=== PATIENT | male | born 1950 | race Caucasian/White ===

== ENCOUNTER 2018-11-14 12:23 | Emergency (ER) | payer OTHER, SELFPAY ==
[2018-11-14 12:39] VITALS: BP 93/63; PULSE 49; RESP 16; O2SAT 95; BMI 34.8
--- NOTE | 2018-11-14 12:45 | ED.SYNCOPE ---
HPI - Syncope <JAQUELIN Mathis - Last Filed: 11/14/18 21:54> General Chief Complaint: Syncope Stated Complaint: LOW HEART RATE LOW BLOOD PRESSURE PASSING OUT SITE Time Seen by Provider: 11/14/18 12:29 Source: patient Mode of arrival: ambulatory Limitations: no limitations History of Present Illness HPI narrative: 67-year-old male with history of BPH and is a nonsmoker here for complaint of having a presyncopal episode at the walk-in clinic earlier today. He was there for a thumb laceration to his left thumb that he accidentally cut while he was cutting bread making breakfast this morning. They were irrigating his thumb and just give local anesthesia to the thumb when he started to feel lightheaded. Providers at the walk-in clinic noticed that his blood pressure dropped and his heart rate also dropped. Patient had some nausea. He did not lose consciousness. He denies any chest pain. No shortness of breath. He states he feels better at this time. He states that he has a history of having a vasovagal responses when he has had his blood drawn in the past. He denies any other concerns or complaints at this time. complaint: felt faint Related Data Home Medications Medication Instructions Recorded Confirmed tamsulosin 0.4 mg capsule 0.4 mg PO BID cap 11/14/18 11/14/18 Allergies Allergy/AdvReac Type Severity Reaction Status Date / Time No Known Drug Allergies Allergy Verified 11/14/18 12:39 Review of Systems <JAQUELIN Mathis - Last Filed: 11/14/18 21:54> Constitutional Denies chills, Denies fever(s), Denies lethargy and Denies weakness Eyes Denies change in vision, Denies eye discharge, Denies irritation and Denies loss of vision ENT Ears, Nose, Mouth, and Throat: Denies change in voice, Denies neck pain and Denies sore throat Cardiovascular Denies chest pain, Denies irregular heart rhythm, Denies lightheadedness, Denies palpitations, Denies dyspnea, Denies dyspnea on exertion and Denies orthopnea Comments: Pre syncopal episode Respiratory Denies cough, Denies dyspnea, Denies dyspnea on exertion and Denies wheezing Gastrointestinal Gastrointestinal: Denies abdominal pain, Denies change in bowel habits, Denies diarrhea, Denies nausea and Denies vomiting Genitourinary Denies hematuria, Denies flank pain, Denies urinary incontinence and Denies urinary urgency Musculoskeletal Denies neck pain Comments: Laceration of left thumb Integumentary/Breasts Denies pruritus, Denies erythema, Denies rash and Denies wounds Neurologic Denies confusion, Denies loss of vision and Denies weakness Psychiatric Denies anxiety, Denies confusion, Denies depression, Denies homicidal ideation and Denies suicidal ideation Endocrine Denies palpitations Hematologic/Lymphatic Denies easy bruising Allergic/Immunologic Denies wheezing Exam <JAQUELIN Mathis - Last Filed: 11/14/18 21:54> Initial Vital Signs Initial Vital Signs: Vital Signs Pulse Rate 49 L 11/14/18 12:39 Respiratory Rate 16 11/14/18 12:39 Blood Pressure 93/63 11/14/18 12:39 Pulse Oximetry 95 11/14/18 12:39 Const General: cooperative and well developed Nutritional Appearance: well nourished Orientation: alert, awake, oriented x3 and not confused HENMT Head: normal to inspection and normocephalic Mouth: oral mucosae normal and moist mucous membranes Eyes Conjunctivae: conjunctivae normal Sclera: sclerae normal Pupils: PERRL EOM: EOM intact bilaterally Chest Chest: normal inspection of the chest Resp Effort & Inspection: normal respiratory effort, able to speak in complete sentences, no respiratory distress and no use of accessory muscles Auscultation: clear to auscultation bilaterally, no rales, no rhonchi and no wheezes Cardio Rate: regular rate Rhythm: regular rhythm Heart Sounds: no click, no gallops, no murmurs and no rubs Pulses: normal peripheral pulses GI Inspection: non-distended Palpation: soft, no hepatosplenomegaly, No guarding, No pulsatile mass and No tender Auscultation: normal bowel sounds Skin General: no rashes or lesions noted, No jaundice and No petechiae Neuro General: alert, oriented x3, gait normal and no focal motor deficits Speech: speech normal Extrem Other: 3 cm laceration to the distal pad of the left thumb. Distal sensation is intact. Distal range of motion is intact. Distal cap refill less than 2 sec. <Addie Fraire DO - Last Filed: 11/15/18 21:34> Initial Vital Signs Initial Vital Signs: Vital Signs Pulse Rate 49 L 11/14/18 12:39 Respiratory Rate 16 11/14/18 12:39 Blood Pressure 93/63 11/14/18 12:39 Pulse Oximetry 95 11/14/18 12:39 Procedures <JAQUELIN Mathis - Last Filed: 11/14/18 21:54> Laceration Repair Laceration 1: Side (If applicable): left (Distal Pad left thumb) Size (cm): 3 Description: linear Depth: simple, single layer Local Anesthetic: lidocaine 1% Amount of anesthesia used (mL): 2 Pre-repair: wound explored and irrigated extensively Skin layer closed with: nylon Size (cm): 5-0 Number of sutures: 7 Technique: simple, interrupted Course <JAQUELIN Mathis - Last Filed: 11/14/18 21:54> Orders Ordered: Discontinued Medications Sodium Chloride (Normal Saline 0.9%) 1,000 mls @ 1,000 mls/hr IV BOLUS ONE Stop: 11/14/18 13:50 Last Infusion: 11/14/18 14:24 Dose: 0 mls/hr Admin: 11/14/18 13:15 Dose: 1,000 mls/hr Vital Signs - 8 hr 11/14/18 14:14 11/14/18 15:11 11/14/18 16:59 Pulse Rate 69 79 83 Respiratory Rate 16 23 16 Blood Pressure Blood Pressure [Left Arm] 118/82 126/63 134/81 Pulse Oximetry 98 96 11/14/18 17:06 Pulse Rate 83 Respiratory Rate 16 Blood Pressure 93/63 Blood Pressure [Left Arm] Pulse Oximetry 96 <Addie Fraire DO - Last Filed: 11/15/18 21:34> Orders Ordered: Discontinued Medications Sodium Chloride (Normal Saline 0.9%) 1,000 mls @ 1,000 mls/hr IV BOLUS ONE Stop: 11/14/18 13:50 Last Infusion: 11/14/18 14:24 Dose: 0 mls/hr Admin: 11/14/18 13:15 Dose: 1,000 mls/hr Vital Signs - 8 hr 11/14/18 14:14 11/14/18 15:11 11/14/18 16:59 Pulse Rate 69 79 83 Respiratory Rate 16 23 16 Blood Pressure Blood Pressure [Left Arm] 118/82 126/63 134/81 Pulse Oximetry 98 96 11/14/18 17:06 Pulse Rate 83 Respiratory Rate 16 Blood Pressure 93/63 Blood Pressure [Left Arm] Pulse Oximetry 96 MDM - Syncope <JAQUELIN Mathis - Last Filed: 11/14/18 21:54> Lab Data Result diagrams: 11/14/18 13:40 11/14/18 13:40 Lab Results 11/14/18 11/14/18 11/14/18 Range/Units 13:40 13:40 15:50 WBC 5.4 (4.5-11.0) X10^3/uL RBC 5.46 (4.5-5.9) X10^6/uL Hgb 16.9 (13.5-17.5) g/dL Hct 50.2 (41-53) % MCV 92.0 (80-100) fL MCH 31.0 (26-34) PG MCHC 33.7 (30-36) % RDW 13.3 (11.6-14.8) % Plt Count 159 (150-400) X10^3/uL Neut % (Auto) 71.6 (50-75) % Lymph % (Auto) 19.9 L (25-40) % Fillmore % (Auto) 6.9 (3-14) % Eos % (Auto) 1.1 L (2-4) % Baso % (Auto) 0.5 (0-2) % Neut # (Auto) 3900 (7945-9056) /uL Lymph # (Auto) 1100 (7511-6238) /uL Fill[place] # (Auto) 400 (0-900) /uL Eos # (Auto) 100 (0-450) /uL Baso # (Auto) 0 (0-100) /uL Sodium 142 (137-145) mmol/L Potassium 4.1 (3.4-5.1) mmol/L Chloride 105 (98-107) mmol/L Carbon Dioxide 27 (22-32) mmol/L BUN 15 (9-20) mg/dL Creatinine 0.70 (0.66-1.25) mg/dL Estimated GFR > 60.0 (>60) mL/min BUN/Creatinine Ratio 21.4 (6-22) Glucose 109 (80-110) mg/dL Calcium 9.3 (8.4-10.2) mg/dL Troponin I < 0.012 < 0.012 (0.01-0.034) ng/mL Imaging Data CT scan - head: Radiologist's impression: Launch Image View Report History Print [address] [address] [address] Scan Report Signed Patient: Stu Spencer MR#: [id number] : 1950 Acct:[id number] Age/Sex: 67 / M Date of Service: 11/14/18 Loc: ED Accession Number: [id number] Procedure: CT head/brain wo con Ordering Provider: Romulo Mayes PROCEDURE: CT HEAD/BRAIN WO CON INDICATIONS: Pre syncopal episode TECHNIQUE: Noncontrast 4.5 mm thick angled axial sections acquired from the foramen magnum to the vertex, with coronal and sagittal reformats. For radiation dose reduction, the following was used: automated exposure control, adjustment of mA and/or kV according to patient size. COMPARISON: None. FINDINGS: Image quality: Excellent. CSF spaces: Basal cisterns are patent. No extra-axial fluid collections. Ventricles are normal in size and shape. Brain: No midline shift. No intracranial masses or hemorrhage. Muniz-white matter interface is normal. Skull and face: Calvarium and visualized facial bones are intact, without suspicious lesions. Sinuses: Visualized sinuses and mastoids are clear. IMPRESSION: Normal for age, source of current presyncopal symptoms is not seen. Dictated by: Quinten Galeana M.D. on 11/14/2018 at 13:11 Approved by: Quinten Galeana M.D. on 11/14/2018 at 13:11 Chest x-ray: Radiologist's impression: [address] [address] XRay Report Signed Patient: Stu Spencer MR#: [id number] : 1950 Acct:[id number] Age/Sex: 67 / M Date of Service: 11/14/18 Loc: ED Accession Number: [id number] Procedure: XR chest 1V Ordering Provider: Romulo Mayes PROCEDURE: XR CHEST 1V INDICATIONS: Pre syncopal episode this morning TECHNIQUE: One view of the chest was acquired. COMPARISON: None. FINDINGS: Surgical changes and devices: None. Lungs and pleura: No pleural effusions or pneumothorax. Mild diffuse interstitial prominence and streaky opacities of the lung bases without focal consolidation. Lung volumes are slightly diminished. Mediastinum: Mediastinal contours appear normal. Heart size is normal. Bones and chest wall: No suspicious bony lesions. Overlying soft tissues appear unremarkable. IMPRESSION: Mild diffuse interstitial prominence and minimal bibasilar streaky opacities without focal consolidation. Findings are likely related to slightly diminished lung volumes. Otherwise, no acute cardiopulmonary abnormalities. Consider dedicated PA and lateral chest radiographs when patient is able. Dictated by: Chad Shay M.D. on 11/14/2018 at 14:01 Approved by: Chad Shay M.D. on 11/14/2018 at 14:03 ECG Data Interpretation: Initial EKG shows sinus bradycardia no ST elevation or depression. T-wave inversion seen to V3 and V6 V5 no ST elevation or depression. No ectopy. Ventricular rate of 49. Pr interval 228. QRS duration 106. QTC of 430 Repeat EKG shows normal sinus rhythm with no ST elevation or depression. No ectopy. T-waves return to normal. Ventricular rate is 71. Pr interval 238. QRS duration 97. QTC of 430. MDM Narrative Medical decision making narrative: Head CT was obtained was negative for any acute findings. Chest x-ray shows mild diffuse interstitial prominence and mild bibasilar opacities with no focal consolidation. Recommend repeat x-ray on outpatient basis with primary care provider. Patient felt much better after fluids laceration was closed with no complications. Two sets of cardiac enzymes were obtained and were negative. Laboratory results were unremarkable. Signs and symptoms presents as a vasovagal response however unsure of why he had inverted T-waves on initial EKG. Discussed case with Cardiology Dr. Nails who recommends outpatient stress test. Patient is instructed to follow up with primary care provider or cardiology for stress test referral. Tetanus was updated emergency room today. For any worsening symptoms return emergency room. Sutures removed in 7-10 days. [id number] Tylenol or Motrin as needed for any discomfort <Addie Fraire, - Last Filed: 11/15/18 21:34> Lab Data Lab Results 11/14/18 11/14/18 11/14/18 Range/Units 13:40 13:40 15:50 WBC 5.4 (4.5-11.0) X10^3/uL RBC 5.46 (4.5-5.9) X10^6/uL Hgb 16.9 (13.5-17.5) g/dL Hct 50.2 (41-53) % MCV 92.0 (80-100) fL MCH 31.0 (26-34) PG MCHC 33.7 (30-36) % RDW 13.3 (11.6-14.8) % Plt Count 159 (150-400) X10^3/uL Neut % (Auto) 71.6 (50-75) % Lymph % (Auto) 19.9 L (25-40) % Fillmore % (Auto) 6.9 (3-14) % Eos % (Auto) 1.1 L (2-4) % Baso % (Auto) 0.5 (0-2) % Neut # (Auto) 3900 (6111-4935) /uL Lymph # (Auto) 1100 (4600-8288) /uL Fill[place] # (Auto) 400 (0-900) /uL Eos # (Auto) 100 (0-450) /uL Baso # (Auto) 0 (0-100) /uL Sodium 142 (137-145) mmol/L Potassium 4.1 (3.4-5.1) mmol/L Chloride 105 (98-107) mmol/L Carbon Dioxide 27 (22-32) mmol/L BUN 15 (9-20) mg/dL Creatinine 0.70 (0.66-1.25) mg/dL Estimated GFR > 60.0 (>60) mL/min BUN/Creatinine Ratio 21.4 (6-22) Glucose 109 (80-110) mg/dL Calcium 9.3 (8.4-10.2) mg/dL Troponin I < 0.012 < 0.012 (0.01-0.034) ng/mL ECG Data Attestation: I personally reviewed and interpreted this ECG as follows: Prior ECG tracings: not available for review Interpretation: EKG 1.: Normal sinus rhythm T-wave inversions noted in lead 2 3 AVF V5 through V6 no ST elevations or depressions. Rate 49 EKG 2.: Normal sinus rhythm rate 71 no T-wave inversions or ST elevations noted on this EKG MDM Narrative Medical decision making narrative: I discussed case with Romulo. Cardiology was involved patient is not here for chest pain. He sound as though he had a vasovagal syncopal episode. No risk factors. Outpatient stress test was recommended. Discharge Plan Departure Patient Disposition: Home Clinical Impression: Vasovagal syncope, Laceration of left thumb Discharge Date/Time: 11/14/18 17:09 Interventions: ED Discharge Assessment Last Done: 11/14/18 17:08 Instructions: DI for Laceration Repair Activity Restrictions/Additional Instructions: Laceration left thumb was closed with 7 sutures. Sutures removed in 7-10 days. Tetanus was updated in the emergency room today. Keep wound area clean and dry. Dress wound daily with bacitracin dressing. Pre syncopal symptoms presents as a vasovagal response. However there were some EKG changes during initial EKG that needs to be further evaluated. It is recommended that you obtain a stress test/the echo for further evaluation. Follow up with her primary care provider for referral. For any worsening symptoms return to the emergency room. Plenty of fluids. Tetanus was updated in the emergency room today. Prescriptions: No Action tamsulosin 0.4 mg capsule 0.4 mg PO BID RF: 0 Referrals: [facility] [Provider Group] Nirav Nails MD [Physician] - <Addie Fraire DO - Last Filed: 11/15/18 21:34> Cosign ED Attending Alise Attestation: I was immediately available in the department for consultation. Documentation has been reviewed. I agree with assessment and plan.
--- NOTE | 2018-11-14 12:53 | DI.RAD.S_ITS ---
PROCEDURE: XR CHEST 1V INDICATIONS: Pre syncopal episode this morning TECHNIQUE: One view of the chest was acquired. COMPARISON: None. FINDINGS: Surgical changes and devices: None. Lungs and pleura: No pleural effusions or pneumothorax. Mild diffuse interstitial prominence and streaky opacities of the lung bases without focal consolidation. Lung volumes are slightly diminished. Mediastinum: Mediastinal contours appear normal. Heart size is normal. Bones and chest wall: No suspicious bony lesions. Overlying soft tissues appear unremarkable. IMPRESSION: Mild diffuse interstitial prominence and minimal bibasilar streaky opacities without focal consolidation. Findings are likely related to slightly diminished lung volumes. Otherwise, no acute cardiopulmonary abnormalities. Consider dedicated PA and lateral chest radiographs when patient is able. Dictated by: Chad Shay M.D. on 11/14/2018 at 14:01 Approved by: Chad Shay M.D. on 11/14/2018 at 14:03
--- NOTE | 2018-11-14 12:56 | DI.CT.S_ITS ---
PROCEDURE: CT HEAD/BRAIN WO CON INDICATIONS: Pre syncopal episode TECHNIQUE: Noncontrast 4.5 mm thick angled axial sections acquired from the foramen magnum to the vertex, with coronal and sagittal reformats. For radiation dose reduction, the following was used: automated exposure control, adjustment of mA and/or kV according to patient size. COMPARISON: None. FINDINGS: Image quality: Excellent. CSF spaces: Basal cisterns are patent. No extra-axial fluid collections. Ventricles are normal in size and shape. Brain: No midline shift. No intracranial masses or hemorrhage. Muniz-white matter interface is normal. Skull and face: Calvarium and visualized facial bones are intact, without suspicious lesions. Sinuses: Visualized sinuses and mastoids are clear. IMPRESSION: Normal for age, source of current presyncopal symptoms is not seen. Dictated by: Quinten Galeana M.D. on 11/14/2018 at 13:11 Approved by: Quinten Galeana M.D. on 11/14/2018 at 13:11
--- NOTE | 2018-11-14 13:03 | PC.NURSE ---
on arrival pt drank 120ml water. tolerated well, denies nausea
[2018-11-14] MEDS: SODIUM CHLORIDE 0.9% 1,000 ML 1000 ML IV (13:15)
[2018-11-14 13:30] VITALS: BP 98/59; PULSE 54; RESP 15; O2SAT 96
[2018-11-14 13:48] LABS: Add Manual Diff / Slide Review NO; Basophils Absolute Auto 0 /uL (0-100); Basophils Percent Auto 0.5 % (0-2); Eosinophils Absolute Auto 100 /uL (0-450); Eosinophils Percent Auto 1.1 % (2-4); Hematocrit 50.2 % (41-53); Hemoglobin 16.9 g/dL (13.5-17.5); Lymphocytes Absolute Auto 1100 /uL (1100-4500); Lymphocytes Percent Auto 19.9 % (25-40); Mean Corpuscular HGB Conc 33.7 % (30-36); Monocytes Absolute Auto 400 /uL (0-900); Monocytes Percent Auto 6.9 % (3-14); Neutrophils Absolute Auto 3900 /uL (1500-7000); Neutrophils Percent Auto 71.6 % (50-75); Platelet Count 159 X10^3/uL (150-400); Red Blood Cell Count 5.46 X10^6/uL (4.5-5.9); Red Cell Distribution Width 13.3 % (11.6-14.8); White Blood Cell Count 5.4 X10^3/uL (4.5-11.0)
--- NOTE | 2018-11-14 14:00 | ED_ITS ---
HPI - Syncope <JAQUELIN Mathis - Last Filed: 11/14/18 21:54> General Chief Complaint: Syncope Stated Complaint: LOW HEART RATE LOW BLOOD PRESSURE PASSING OUT SITE Time Seen by Provider: 11/14/18 12:29 Source: patient Mode of arrival: ambulatory Limitations: no limitations History of Present Illness HPI narrative: 67-year-old male with history of BPH and is a nonsmoker here for complaint of having a presyncopal episode at the walk-in clinic earlier today. He was there for a thumb laceration to his left thumb that he accidentally cut while he was cutting bread making breakfast this morning. They were irrigating his thumb and just give local anesthesia to the thumb when he started to feel lightheaded. Providers at the walk-in clinic noticed that his blood pressure dropped and his heart rate also dropped. Patient had some nausea. He did not lose consciousness. He denies any chest pain. No shortness of breath. He states he feels better at this time. He states that he has a history of having a vasovagal responses when he has had his blood drawn in the past. He denies any other concerns or complaints at this time. complaint: felt faint Related Data Home Medications Medication Instructions Recorded Confirmed tamsulosin 0.4 mg capsule 0.4 mg PO BID cap 11/14/18 11/14/18 Allergies Allergy/AdvReac Type Severity Reaction Status Date / Time No Known Drug Allergies Allergy Verified 11/14/18 12:39 Review of Systems <JAQUELIN Mathis - Last Filed: 11/14/18 21:54> Constitutional Denies chills, Denies fever(s), Denies lethargy and Denies weakness Eyes Denies change in vision, Denies eye discharge, Denies irritation and Denies loss of vision ENT Ears, Nose, Mouth, and Throat: Denies change in voice, Denies neck pain and Denies sore throat Cardiovascular Denies chest pain, Denies irregular heart rhythm, Denies lightheadedness, Denies palpitations, Denies dyspnea, Denies dyspnea on exertion and Denies orthopnea Comments: Pre syncopal episode Respiratory Denies cough, Denies dyspnea, Denies dyspnea on exertion and Denies wheezing Gastrointestinal Gastrointestinal: Denies abdominal pain, Denies change in bowel habits, Denies diarrhea, Denies nausea and Denies vomiting Genitourinary Denies hematuria, Denies flank pain, Denies urinary incontinence and Denies urinary urgency Musculoskeletal Denies neck pain Comments: Laceration of left thumb Integumentary/Breasts Denies pruritus, Denies erythema, Denies rash and Denies wounds Neurologic Denies confusion, Denies loss of vision and Denies weakness Psychiatric Denies anxiety, Denies confusion, Denies depression, Denies homicidal ideation and Denies suicidal ideation Endocrine Denies palpitations Hematologic/Lymphatic Denies easy bruising Allergic/Immunologic Denies wheezing Exam <JAQUELIN Mathis - Last Filed: 11/14/18 21:54> Initial Vital Signs Initial Vital Signs: Vital Signs Pulse Rate 49 L 11/14/18 12:39 Respiratory Rate 16 11/14/18 12:39 Blood Pressure 93/63 11/14/18 12:39 Pulse Oximetry 95 11/14/18 12:39 Const General: cooperative and well developed Nutritional Appearance: well nourished Orientation: alert, awake, oriented x3 and not confused HENMT Head: normal to inspection and normocephalic Mouth: oral mucosae normal and moist mucous membranes Eyes Conjunctivae: conjunctivae normal Sclera: sclerae normal Pupils: PERRL EOM: EOM intact bilaterally Chest Chest: normal inspection of the chest Resp Effort & Inspection: normal respiratory effort, able to speak in complete sentences, no respiratory distress and no use of accessory muscles Auscultation: clear to auscultation bilaterally, no rales, no rhonchi and no wheezes Cardio Rate: regular rate Rhythm: regular rhythm Heart Sounds: no click, no gallops, no murmurs and no rubs Pulses: normal peripheral pulses GI Inspection: non-distended Palpation: soft, no hepatosplenomegaly, No guarding, No pulsatile mass and No tender Auscultation: normal bowel sounds Skin General: no rashes or lesions noted, No jaundice and No petechiae Neuro General: alert, oriented x3, gait normal and no focal motor deficits Speech: speech normal Extrem Other: 3 cm laceration to the distal pad of the left thumb. Distal sensation is intact. Distal range of motion is intact. Distal cap refill less than 2 sec. <Addie Fraire DO - Last Filed: 11/15/18 21:34> Initial Vital Signs Initial Vital Signs: Vital Signs Pulse Rate 49 L 11/14/18 12:39 Respiratory Rate 16 11/14/18 12:39 Blood Pressure 93/63 11/14/18 12:39 Pulse Oximetry 95 11/14/18 12:39 Procedures <JAQUELIN Mathis - Last Filed: 11/14/18 21:54> Laceration Repair Laceration 1: Side (If applicable): left (Distal Pad left thumb) Size (cm): 3 Description: linear Depth: simple, single layer Local Anesthetic: lidocaine 1% Amount of anesthesia used (mL): 2 Pre-repair: wound explored and irrigated extensively Skin layer closed with: nylon Size (cm): 5-0 Number of sutures: 7 Technique: simple, interrupted Course <JAQUELIN Mathis - Last Filed: 11/14/18 21:54> Orders Ordered: Discontinued Medications Sodium Chloride (Normal Saline 0.9%) 1,000 mls @ 1,000 mls/hr IV BOLUS ONE Stop: 11/14/18 13:50 Last Infusion: 11/14/18 14:24 Dose: 0 mls/hr Admin: 11/14/18 13:15 Dose: 1,000 mls/hr Vital Signs - 8 hr 11/14/18 14:14 11/14/18 15:11 11/14/18 16:59 Pulse Rate 69 79 83 Respiratory Rate 16 23 16 Blood Pressure Blood Pressure [Left Arm] 118/82 126/63 134/81 Pulse Oximetry 98 96 11/14/18 17:06 Pulse Rate 83 Respiratory Rate 16 Blood Pressure 93/63 Blood Pressure [Left Arm] Pulse Oximetry 96 <Addie Fraire DO - Last Filed: 11/15/18 21:34> Orders Ordered: Discontinued Medications Sodium Chloride (Normal Saline 0.9%) 1,000 mls @ 1,000 mls/hr IV BOLUS ONE Stop: 11/14/18 13:50 Last Infusion: 11/14/18 14:24 Dose: 0 mls/hr Admin: 11/14/18 13:15 Dose: 1,000 mls/hr Vital Signs - 8 hr 11/14/18 14:14 11/14/18 15:11 11/14/18 16:59 Pulse Rate 69 79 83 Respiratory Rate 16 23 16 Blood Pressure Blood Pressure [Left Arm] 118/82 126/63 134/81 Pulse Oximetry 98 96 11/14/18 17:06 Pulse Rate 83 Respiratory Rate 16 Blood Pressure 93/63 Blood Pressure [Left Arm] Pulse Oximetry 96 MDM - Syncope <JAQUELIN Mathis - Last Filed: 11/14/18 21:54> Lab Data Result diagrams: 11/14/18 13:40 11/14/18 13:40 Lab Results 11/14/18 11/14/18 11/14/18 Range/Units 13:40 13:40 15:50 WBC 5.4 (4.5-11.0) X10^3/uL RBC 5.46 (4.5-5.9) X10^6/uL Hgb 16.9 (13.5-17.5) g/dL Hct 50.2 (41-53) % MCV 92.0 (80-100) fL MCH 31.0 (26-34) PG MCHC 33.7 (30-36) % RDW 13.3 (11.6-14.8) % Plt Count 159 (150-400) X10^3/uL Neut % (Auto) 71.6 (50-75) % Lymph % (Auto) 19.9 L (25-40) % [place] % (Auto) 6.9 (3-14) % Eos % (Auto) 1.1 L (2-4) % Baso % (Auto) 0.5 (0-2) % Neut # (Auto) 3900 (9614-2859) /uL Lymph # (Auto) 1100 (4402-3091) /uL [place] # (Auto) 400 (0-900) /uL Eos # (Auto) 100 (0-450) /uL Baso # (Auto) 0 (0-100) /uL Sodium 142 (137-145) mmol/L Potassium 4.1 (3.4-5.1) mmol/L Chloride 105 (98-107) mmol/L Carbon Dioxide 27 (22-32) mmol/L BUN 15 (9-20) mg/dL Creatinine 0.70 (0.66-1.25) mg/dL Estimated GFR > 60.0 (>60) mL/min BUN/Creatinine Ratio 21.4 (6-22) Glucose 109 (80-110) mg/dL Calcium 9.3 (8.4-10.2) mg/dL Troponin I < 0.012 < 0.012 (0.01-0.034) ng/mL Imaging Data CT scan - head: Radiologist's impression: Launch Image View Report History Print [address] [address] [address] Scan Report Signed Patient: Stu Spencer MR#: [id number] : 1950 Acct:[id number] Age/Sex: 67 / M Date of Service: 11/14/18 Loc: ED Accession Number: [id number] Procedure: CT head/brain wo con Ordering Provider: Romulo Mayes PROCEDURE: CT HEAD/BRAIN WO CON INDICATIONS: Pre syncopal episode TECHNIQUE: Noncontrast 4.5 mm thick angled axial sections acquired from the foramen magnum to the vertex, with coronal and sagittal reformats. For radiation dose reduction, the following was used: automated exposure control, adjustment of mA and/or kV according to patient size. COMPARISON: None. FINDINGS: Image quality: Excellent. CSF spaces: Basal cisterns are patent. No extra-axial fluid collections. Ventricles are normal in size and shape. Brain: No midline shift. No intracranial masses or hemorrhage. Muniz-white matter interface is normal. Skull and face: Calvarium and visualized facial bones are intact, without suspicious lesions. Sinuses: Visualized sinuses and mastoids are clear. IMPRESSION: Normal for age, source of current presyncopal symptoms is not seen. Dictated by: Quinten Galeana M.D. on 11/14/2018 at 13:11 Approved by: Quinten Galeana M.D. on 11/14/2018 at 13:11 Chest x-ray: Radiologist's impression: [address] [address] XRay Report Signed Patient: Stu Spencer MR#: [id number] : 1950 Acct:[id number] Age/Sex: 67 / M Date of Service: 11/14/18 Loc: ED Accession Number: [id number] Procedure: XR chest 1V Ordering Provider: Romulo Mayes PROCEDURE: XR CHEST 1V INDICATIONS: Pre syncopal episode this morning TECHNIQUE: One view of the chest was acquired. COMPARISON: None. FINDINGS: Surgical changes and devices: None. Lungs and pleura: No pleural effusions or pneumothorax. Mild diffuse interstitial prominence and streaky opacities of the lung bases without focal consolidation. Lung volumes are slightly diminished. Mediastinum: Mediastinal contours appear normal. Heart size is normal. Bones and chest wall: No suspicious bony lesions. Overlying soft tissues appear unremarkable. IMPRESSION: Mild diffuse interstitial prominence and minimal bibasilar streaky opacities without focal consolidation. Findings are likely related to slightly diminished lung volumes. Otherwise, no acute cardiopulmonary abnormalities. Consider dedicated PA and lateral chest radiographs when patient is able. Dictated by: Chad Shay M.D. on 11/14/2018 at 14:01 Approved by: Chad Shay M.D. on 11/14/2018 at 14:03 ECG Data Interpretation: Initial EKG shows sinus bradycardia no ST elevation or depression. T-wave inversion seen to V3 and V6 V5 no ST elevation or depression. No ectopy. Ventricular rate of 49. Pr interval 228. QRS duration 106. QTC of 430 Repeat EKG shows normal sinus rhythm with no ST elevation or depression. No ectopy. T-waves return to normal. Ventricular rate is 71. Pr interval 238. QRS duration 97. QTC of 430. MDM Narrative Medical decision making narrative: Head CT was obtained was negative for any acute findings. Chest x-ray shows mild diffuse interstitial prominence and mild bibasilar opacities with no focal consolidation. Recommend repeat x-ray on outpatient basis with primary care provider. Patient felt much better after fluids laceration was closed with no complications. Two sets of cardiac enzymes were obtained and were negative. Laboratory results were unremarkable. Signs and symptoms presents as a vasovagal response however unsure of why he had inverted T-waves on initial EKG. Discussed case with Cardiology Dr. Nails who recommends outpatient stress test. Patient is instructed to follow up with primary care provider or cardiology for stress test referral. Tetanus was updated emergency room today. For any worsening symptoms return emergency room. Sutures removed in 7-10 days. [id number] Tylenol or Motrin as needed for any discomfort <Addie Fraire, - Last Filed: 11/15/18 21:34> Lab Data Lab Results 11/14/18 11/14/18 11/14/18 Range/Units 13:40 13:40 15:50 WBC 5.4 (4.5-11.0) X10^3/uL RBC 5.46 (4.5-5.9) X10^6/uL Hgb 16.9 (13.5-17.5) g/dL Hct 50.2 (41-53) % MCV 92.0 (80-100) fL MCH 31.0 (26-34) PG MCHC 33.7 (30-36) % RDW 13.3 (11.6-14.8) % Plt Count 159 (150-400) X10^3/uL Neut % (Auto) 71.6 (50-75) % Lymph % (Auto) 19.9 L (25-40) % [place] % (Auto) 6.9 (3-14) % Eos % (Auto) 1.1 L (2-4) % Baso % (Auto) 0.5 (0-2) % Neut # (Auto) 3900 (2034-4090) /uL Lymph # (Auto) 1100 (6118-8937) /uL [place] # (Auto) 400 (0-900) /uL Eos # (Auto) 100 (0-450) /uL Baso # (Auto) 0 (0-100) /uL Sodium 142 (137-145) mmol/L Potassium 4.1 (3.4-5.1) mmol/L Chloride 105 (98-107) mmol/L Carbon Dioxide 27 (22-32) mmol/L BUN 15 (9-20) mg/dL Creatinine 0.70 (0.66-1.25) mg/dL Estimated GFR > 60.0 (>60) mL/min BUN/Creatinine Ratio 21.4 (6-22) Glucose 109 (80-110) mg/dL Calcium 9.3 (8.4-10.2) mg/dL Troponin I < 0.012 < 0.012 (0.01-0.034) ng/mL ECG Data Attestation: I personally reviewed and interpreted this ECG as follows: Prior ECG tracings: not available for review Interpretation: EKG 1.: Normal sinus rhythm T-wave inversions noted in lead 2 3 AVF V5 through V6 no ST elevations or depressions. Rate 49 EKG 2.: Normal sinus rhythm rate 71 no T-wave inversions or ST elevations noted on this EKG MDM Narrative Medical decision making narrative: I discussed case with Romulo. Cardiology was involved patient is not here for chest pain. He sound as though he had a vasovagal syncopal episode. No risk factors. Outpatient stress test was recommended. Discharge Plan Departure Patient Disposition: Home Clinical Impression: Vasovagal syncope, Laceration of left thumb Discharge Date/Time: 11/14/18 17:09 Interventions: ED Discharge Assessment Last Done: 11/14/18 17:08 Instructions: DI for Laceration Repair Activity Restrictions/Additional Instructions: Laceration left thumb was closed with 7 sutures. Sutures removed in 7-10 days. Tetanus was updated in the emergency room today. Keep wound area clean and dry. Dress wound daily with bacitracin dressing. Pre syncopal symptoms presents as a vasovagal response. However there were some EKG changes during initial EKG that needs to be further evaluated. It is recommended that you obtain a stress test/the echo for further evaluation. Follow up with her primary care provider for referral. For any worsening symptoms return to the emergency room. Plenty of fluids. Tetanus was updated in the emergency room today. Prescriptions: No Action tamsulosin 0.4 mg capsule 0.4 mg PO BID RF: 0 Referrals: [facility] [Provider Group] Nirav Nails MD [Physician] - <Addie Fraire DO - Last Filed: 11/15/18 21:34> Cosign ED Attending Alise Attestation: I was immediately available in the department for consultation. Documentation has been reviewed. I agree with assessment and plan.
[2018-11-14 14:02] LABS: BUN Creatinine Ratio 21.4 (6-22); Blood Urea Nitrogen 15 mg/dL (9-20); Calcium 9.3 mg/dL (8.4-10.2); Carbon Dioxide 27 mmol/L (22-32); Chloride 105 mmol/L (98-107); Estimated Glomerular Filt Rate > 60.0 mL/min (>60); Glucose 109 mg/dL (80-110); Potassium 4.1 mmol/L (3.4-5.1); Sodium 142 mmol/L (137-145)
[2018-11-14 14:14] VITALS: BP 118/82; PULSE 69; RESP 16; O2SAT 98
[2018-11-14 14:15] LABS: HEMOLYSIS < 15 (0-50)
[2018-11-14 14:22] LABS: Troponin I < 0.012 ng/mL (0.01-0.034)
[2018-11-14 15:11] VITALS: BP 126/63; PULSE 79; RESP 23
[2018-11-14 16:38] LABS: Troponin I < 0.012 ng/mL (0.01-0.034)
[2018-11-14 16:59] VITALS: BP 134/81; PULSE 83; RESP 16; O2SAT 96
[2018-11-14 17:06] VITALS: BP 93/63; PULSE 83; RESP 16; O2SAT 96; BMI 34.8
== END 2018-11-14 17:09 | disposition home or self-care (01) ==
PROVIDERS: Emergency Provider Nurse Practitioner Family
DX: S61.012A Laceration without foreign body of left thumb without damage to nail, initial encounter (principal); R55 Syncope and collapse; W26.8XXA Contact with other sharp object(s), not elsewhere classified, initial encounter
CPT/HCPCS: 12002; 36415; 70450; 71045; 80048; 84484; 85025; 93005; 93010; 96360; 99283; 99285

== ENCOUNTER 2019-11-11 01:27 | Emergency (ER) | payer OTHER, SELFPAY ==
--- NOTE | 2019-11-11 01:38 | ED.ABDPAIN ---
HPI - Abdominal Pain General Chief Complaint: Abdominal Pain Stated Complaint: TERRIBLE STOMACH ACHE Time Seen by Provider: 11/11/19 01:28 Source: patient Mode of arrival: Ambulatory Limitations: no limitations History of Present Illness HPI narrative: 68-year-old male here for evaluation of upper abdominal pain radiating to his back. He states that has been going on for the past several hours. Some nausea but no vomiting. He stated that he felt like he was constipated so gave himself an enema and had a bowel movement however this did not seem to changes symptoms. No other sick contacts. Related Data Home Medications Medication Instructions Recorded Confirmed tamsulosin 0.4 mg capsule 0.4 mg PO BID cap 11/14/18 11/14/18 Allergies Allergy/AdvReac Type Severity Reaction Status Date / Time No Known Drug Allergies Allergy Verified 11/14/18 12:39 Review of Systems Constitutional Constitutional: Denies fever(s) Cardiovascular Cardiovascular: Denies chest pain and Denies dyspnea Respiratory Respiratory: Denies dyspnea Gastrointestinal Gastrointestinal: Reports abdominal pain, Reports constipation, Reports nausea and Denies vomiting Genitourinary Genitourinary: Denies dysuria Musculoskeletal Musculoskeletal: Reports back pain, Denies myalgias and Denies arthralgias Integumentary/Breasts Skin/Breast: Denies lesions and Denies rash Neurologic Neurologic: Denies behavioral changes Psychiatric Psychiatric: Denies behavioral changes Hematologic/Lymphatic Hematologic/Lymphatic: Denies easy bleeding and Denies easy bruising Patient History Medical History BPH (benign prostatic hyperplasia) (Acute) Social History Smoking Status: Never smoker Exam Initial Vital Signs Initial Vital Signs: Vital Signs Temperature 97.4 F L 11/11/19 01:42 Pulse Rate 59 L 11/11/19 01:42 Respiratory Rate 16 11/11/19 01:42 Blood Pressure 157/93 H 11/11/19 01:42 Pulse Oximetry 95 11/11/19 01:42 Const General: cooperative, comfortable and well developed Limitations: mental status not altered HENMT Head: normal to inspection and normocephalic Resp Effort & Inspection: normal respiratory effort Cardio Rate: regular rate GI Inspection: non-distended Palpation: soft, No firm and tender (Bilateral upper abdomen without rebound or guarding) Skin Lesions: no lesions Rashes: no rashes Neuro General: alert and awake Cognition: normal cognition Speech: speech normal Extrem General: normal to inspection and capillary refill normal Course Orders Ordered: ED Orders 11/11/19 01:46 CT abdomen pelvis w con Stat 11/11/19 02:00 Complete Blood Count AUTO DIFF Stat Comprehensive Metabolic Panel Stat Lipase Stat Discontinued Medications Sodium Chloride (Normal Saline 0.9%) 1,000 mls @ 1,000 mls/hr IV BOLUS ONE Stop: 11/11/19 02:45 Last Admin: 11/11/19 02:09 Dose: 1,000 mls/hr Documented by: CADENCE Vital Signs Vital signs: Vital Signs - 8 hr 11/11/19 01:42 11/11/19 02:03 11/11/19 03:04 Temperature 97.4 F L Pulse Rate 59 L 59 L 81 Respiratory Rate 16 14 Blood Pressure 157/93 H Blood Pressure [Left Arm] 153/76 H 138/82 Pulse Oximetry 95 95 94 MDM - Abdominal Pain Medical Records Attestation: I reviewed the patient's medical records. Lab Data Attestation: I reviewed the patient's lab results. Result diagrams: 11/11/19 02:00 11/11/19 02:00 Labs: Lab Results 11/11/19 11/11/19 Range/Units 02:00 02:00 WBC 9.9 (4.5-11.0) X10^3/uL RBC 5.60 (4.5-5.9) X10^6/uL Hgb 17.5 (13.5-17.5) g/dL Hct 50.6 (41-53) % MCV 90.2 (80-100) fL MCH 31.3 (26-34) PG MCHC 34.7 (30-36) % RDW 13.5 (11.6-14.8) % Plt Count 171 (150-400) X10^3/uL Neut % (Auto) 86.7 H (50-75) % Lymph % (Auto) 10.1 L (25-40) % [place] % (Auto) 2.7 L (3-14) % Eos % (Auto) 0.4 L (2-4) % Baso % (Auto) 0.1 (0-2) % Neut # (Auto) 8600 H (3310-4145) /uL Lymph # (Auto) 1000 L (7319-0274) /uL [place] # (Auto) 300 (0-900) /uL Eos # (Auto) 0 (0-450) /uL Baso # (Auto) 0 (0-100) /uL Sodium 141 (137-145) mmol/L Potassium 3.6 (3.4-5.1) mmol/L Chloride 103 (98-107) mmol/L Carbon Dioxide 26 (22-32) mmol/L BUN 15 (9-20) mg/dL Creatinine 0.50 L (0.66-1.25) mg/dL Estimated GFR > 60.0 (>60) mL/min BUN/Creatinine Ratio 30.0 H (6-22) Glucose 166 H (80-110) mg/dL Calcium 9.9 (8.4-10.2) mg/dL Total Bilirubin 0.6 (0.2-1.3) mg/dL AST 42 (17-59) IU/L ALT 36 (<50) IU/L Alkaline Phosphatase 81 (38-126) U/L Total Protein 7.7 (6.3-8.2) g/dL Albumin 4.6 (3.5-5.0) g/dL Globulin 3.1 (1.7-4.1) g/dL Albumin/Globulin Ratio 1.5 (1.0-2.8) Lipase 94 (23-300) U/L Point of care testing: Urine Dip Bedside Urine Glucose Negative Bedside Urine Bilirubin - Negative Bedside Urine Ketone - Negative Urine Specific [place] 1.015 Bedside Urine Occult Blood - Negative Bedside Urine pH 7.0 Bedside Urine Protein - Negative Bedside Urine Urobilinogen - Negative Bedside Urine Nitrite - Negative Bedside Urine Leukocytes - Negative Esterase Imaging Data CT scan - abdomen/pelvis: Radiologist's Impression: Tiny stones in distended gallbladder Enlarged prostate Probable focal cecal ileus with fecal retention ECG Data Attestation: I personally reviewed and interpreted this ECG as follows: Prior ECG tracings: not available for review Interpretation: Sinus rhythm Ventricular rate is 60 Left axis deviation Sinus arrhythmia Nonspecific ST T wave changes MDM Narrative Medical decision making narrative: Patient with a very benign abdominal exam. Has ambulated urinated without any problems here in the ER. No fevers. CT scan does show colonic stool. Had a long discussion with the patient regarding his bowel habits. Does appear that he frequently has to use an enema to help him have bowel movements. This is not new for him. We did discuss the use of other modalities such as fiber versus oral laxatives. He has had a colonoscopy about 6 years ago. He was told that he did not need to return for 10 years. Feel we can hold on further workup for now. Feel that he does not need admitted to the hospital. He was given return precautions and follow-up instructions. He expressed understanding and agreement with plan. Discharge Plan Departure Patient Disposition: Home Clinical Impression: Abdominal pain Qualifiers: Abdominal location: upper abdomen, unspecified Qualified Code(s): R10.10 - Upper abdominal pain, unspecified Constipation Qualifiers: Constipation type: unspecified constipation type Qualified Code(s): K59.00 - Constipation, unspecified Instructions: DI for Abdominal Pain-Adult, DI for Constipation Activity Restrictions/Additional Instructions: Recommend you talk with your primary doctor about with they recommend with regard to a good bowel regiment. Should increase your fluid intake. Return to the emergency department for any new or worsening symptoms Prescriptions: No Action tamsulosin 0.4 mg capsule 0.4 mg PO BID RF: 0
[2019-11-11 01:42] VITALS: BP 157/93; PULSE 59; RESP 16; TEMP 36.3; O2SAT 95; BMI 32.8
--- NOTE | 2019-11-11 01:46 | DI.CT.S_ITS ---
PROCEDURE: CT ABDOMEN PELVIS W CON INDICATIONS: Upper abdomen pain with constipation and back pain TECHNIQUE: After the administration of oral and intravenous contrast, 5 mm thick sections acquired from the diaphragms to the symphysis. 5 mm thick coronal and sagittal reformats were performed. For radiation dose reduction, the following was used: automated exposure control, adjustment of mA and/or kV according to patient size. COMPARISON: None. FINDINGS: Image quality: Diagnostic ABDOMEN: Lung bases: Lung bases are clear. Mild elevation of the left diaphragm is present. Atelectasis within the bilateral lung bases is present. The heart is mildly enlarged. There is no pericardial effusion. Solid organs: The liver is hypodense when compared to the spleen. A more focally prominent area of decreased density is evident involving the lateral segment of the left hepatic lobe that measures up to 1.6 cm in diameter and is compatible with a simple cyst given the Hounsfield units of approximately 10. The gallbladder is normal in size. There could be a few small gallstones within the dependent aspect of the gallbladder (image 34, series 2). No intrahepatic or extrahepatic biliary dilatation is evident. The pancreas adrenals, and spleen are within normal limits. Both kidneys are normal in size. No hydronephrosis is appreciated. No cystic or solid renal lesions are evident. Peritoneum and bowel: There is a small hiatal hernia. The stomach is moderately distended. There is questionable wall prominence involving the duodenum and proximal jejunum. Small bowel loops are nondilated. The appendix is well-visualized and normal. There may be a few areas of mild colonic diverticulosis. The distal colon is relatively decompressed. No surrounding inflammation is identified involving the more distal portions of the colon. There is moderate redundancy of the sigmoid colon. A moderate to large amount of stool seen within the region of the cecum. Nodes and vessels: No retroperitoneal or mesenteric adenopathy. Aorta and inferior vena cava are normal in caliber. There is mild aortic atherosclerosis. Circumaortic left renal vein is noted. Bones: No acute fracture or suspicious osseous lesion is identified. [id number] degenerative changes of the lumbar spine are more prominent involving the lower lumbar levels. PELVIS: Genitourinary: Bladder wall thickness is normal. The prostate gland is enlarged and measures 5.1 x 6.3 cm. There is central irregularity near the level of the urinary bladder, which may be related to previous TURP. Miscellaneous: No inguinal hernias or adenopathy. No free fluid or loculated fluid collection is identified. There is no free air. Bones: No suspicious bony lesions. No acute pelvic fractures are evident. There are qkqa-[id number]-[id number] degenerative changes of the pelvic joints. IMPRESSION: 1. No definite acute abnormality within the abdomen or pelvis. 2. Cholelithiasis. 3. Hepatic steatosis. 4. Small hiatal hernia. 5. Moderate to large amount of stool within the proximal colon may represent colonic ileus versus constipation. There is no bowel obstruction. 6. Enlarged prostate with central irregularity. This irregularity may be related to previous TURP. However, a neoplastic process cannot be completely excluded and clinical correlation is recommended. Note: The preliminary report provided by [facility] is concordant with the final report. Dictated by: Kurtis Silvestre M.D. on 11/11/2019 at 6:52 Approved by: Kurtis Silvestre M.D. on 11/11/2019 at 6:59
[2019-11-11 02:03] VITALS: BP 153/76; PULSE 59; RESP 14; O2SAT 95
[2019-11-11] MEDS: SODIUM CHLORIDE 0.9% 1,000 ML 1000 ML IV (02:09)
[2019-11-11 02:17] LABS: Alanine Aminotransferase 36 IU/L (<50); Albumin 4.6 g/dL (3.5-5.0); Albumin Globulin Ratio 1.5 (1.0-2.8); Alkaline Phosphatase 81 U/L (38-126); Aspartate Aminotransferase 42 IU/L (17-59); Bilirubin Total 0.6 mg/dL (0.2-1.3); Blood Urea Nitrogen 15 mg/dL (9-20); Calcium 9.9 mg/dL (8.4-10.2); Carbon Dioxide 26 mmol/L (22-32); Chloride 103 mmol/L (98-107); Estimated Glomerular Filt Rate > 60.0 mL/min (>60); Globulin 3.1 g/dL (1.7-4.1); Glucose 166 mg/dL (80-110); HEMOLYSIS < 15 (0-50); Lipase 94 U/L (23-300); Potassium 3.6 mmol/L (3.4-5.1); Sodium 141 mmol/L (137-145); Total Protein 7.7 g/dL (6.3-8.2)
[2019-11-11 02:31] LABS: Add Manual Diff / Slide Review NO; Basophils Absolute Auto 0 /uL (0-100); Basophils Percent Auto 0.1 % (0-2); Eosinophils Absolute Auto 0 /uL (0-450); Eosinophils Percent Auto 0.4 % (2-4); Hematocrit 50.6 % (41-53); Hemoglobin 17.5 g/dL (13.5-17.5); Lymphocytes Absolute Auto 1000 /uL (1100-4500); Lymphocytes Percent Auto 10.1 % (25-40); Mean Corpuscular HGB Conc 34.7 % (30-36); Mean Corpuscular Hemoglobin 31.3 PG (26-34); Mean Corpuscular Volume 90.2 fL (80-100); Monocytes Absolute Auto 300 /uL (0-900); Monocytes Percent Auto 2.7 % (3-14); Neutrophils Absolute Auto 8600 /uL (1500-7000); Neutrophils Percent Auto 86.7 % (50-75); Platelet Count 171 X10^3/uL (150-400); Red Cell Distribution Width 13.5 % (11.6-14.8); White Blood Cell Count 9.9 X10^3/uL (4.5-11.0)
[2019-11-11 03:04] VITALS: BP 138/82; PULSE 81; O2SAT 94
[2019-11-11] MEDS: ONDANSETRON 4 MG ODT PREPACK 1 BOTTLE MISC (03:39)
[2019-11-11 03:48] VITALS: BP 138/82; PULSE 57; RESP 14; O2SAT 98
== END 2019-11-11 03:52 | disposition home or self-care (01) ==
PROVIDERS: Emergency Provider Emergency Medicine
DX: R10.10 Upper abdominal pain, unspecified (principal); K59.00 Constipation, unspecified
CPT/HCPCS: 36415; 74177; 80053; 81003; 83690; 85025; 93005; 99284; 99285; Q9967

== ENCOUNTER 2021-04-13 06:16 | Emergency (ER) | payer MEDICARE, SELFPAY ==
[2021-04-13 06:32] VITALS: BP 175/89; PULSE 76; RESP 18; TEMP 36.8; O2SAT 95; BMI 34.2
--- NOTE | 2021-04-13 06:32 | ED.GENADULT ---
HPI - General Adult <Severiano Mckenzie DO - Last Filed: 04/13/21 17:55> General Chief complaint: Abdominal Pain Stated complaint: thinks food poisoning Time Seen by Provider: 04/13/21 06:22 Source: patient Mode of arrival: Ambulatory Limitations: no limitations History of Present Illness HPI narrative: patient is a 70-year-old male who is here for evaluation of what he thinks is food poisoning. He states that last evening he started to develop generalized abdominal discomfort after eating some fish that he thinks was potentially undercooked. Has had some nausea but no vomiting. No diarrhea. No fevers. Has tried to make himself throw up a couple times last night without any improvement. No prior abdominal surgeries. Just recently started treatment for low testosterone. Related Data Home Medications Medication Instructions Recorded Confirmed tamsulosin 0.4 mg capsule 0.4 mg PO BID cap 11/14/18 11/14/18 Previous Rx's Medication Instructions Recorded hydrocodone-acetaminophen 1 tab PO QID PRN #10 tab 04/13/21 ondansetron HCl [Zofran] 4 mg PO Q6H PRN #10 tab 04/13/21 Allergies Allergy/AdvReac Type Severity Reaction Status Date / Time No Known Drug Allergies Allergy Verified 11/14/18 12:39 Review of Systems <Severiano Mckenzie DO - Last Filed: 04/13/21 17:55> Constitutional Constitutional: Denies fever(s) Cardiovascular Cardiovascular: Denies chest pain and Denies dyspnea Respiratory Respiratory: Denies dyspnea Gastrointestinal Gastrointestinal: Reports abdominal pain, Denies constipation, Denies diarrhea, Reports nausea and Denies vomiting Genitourinary Genitourinary: Denies dysuria Genitourinary: Denies dysuria Musculoskeletal Musculoskeletal: Reports system reviewed and no additional complaints, except as documented Integumentary/Breasts Skin/Breast: Denies rash Hematologic/Lymphatic On Anticoagulants: No Allergic/Immunologic Allergic/Immunologic: Reports system reviewed and no additional complaints, except as documented Patient History <Severiano Mckenzie DO - Last Filed: 04/13/21 17:55> Medical History (Updated 04/13/21 @ 09:30 by Aleyda Mckeon DO) BPH (benign prostatic hyperplasia) Social History Smoking Status: Never smoker Smoking Status: Never smoker alcohol intake frequency: 0-2 drinks per day Substance Use Type: does not use Exam <Severiano Mckenzie, DO - Last Filed: 04/13/21 17:55> Initial Vital Signs Initial Vital Signs: Vital Signs Temperature 98.2 F 04/13/21 06:32 Pulse Rate 76 04/13/21 06:32 Respiratory Rate 18 04/13/21 06:32 Blood Pressure 175/89 H 04/13/21 06:32 Pulse Oximetry 95 04/13/21 06:32 Const General: cooperative and comfortable Limitations: mental status not altered HENMT Head: normal to inspection and normocephalic Resp Effort & Inspection: normal respiratory effort Auscultation: clear to auscultation bilaterally Cardio Rate: regular rate Rhythm: regular rhythm GI Inspection: non-distended Palpation: soft and tender (Generalized tenderness) Other: Reducible umbilical hernia Skin Lesions: no lesions Rashes: no rashes Neuro General: patient alert, patient awake and patient oriented x3 Cognition: normal cognition Speech: speech normal Extrem General: normal to inspection and capillary refill normal Psych Appearance: grossly normal and well kempt <Aleyda Mckeon, DO - Last Filed: 04/13/21 19:59> Initial Vital Signs Initial Vital Signs: Vital Signs Temperature 98.2 F 04/13/21 06:32 Pulse Rate 76 04/13/21 06:32 Respiratory Rate 18 04/13/21 06:32 Blood Pressure 175/89 H 04/13/21 06:32 Pulse Oximetry 95 04/13/21 06:32 Course <Severiano Mckenzie, DO - Last Filed: 04/13/21 17:55> Orders Ordered: Discontinued Medications Sodium Chloride (Normal Saline 0.9%) 1,000 mls @ 500 mls/hr IV BOLUS ONE Stop: 04/13/21 08:31 Last Infusion: 04/13/21 09:08 Dose: 0 mls/hr Documented by: Admin: 04/13/21 06:43 Dose: 500 mls/hr Documented by: ROBBY Morphine Sulfate (Morphine 4 Mg/Ml Inj) 4 mg IV NOW ONE Stop: 04/13/21 06:33 Last Admin: 04/13/21 06:44 Dose: 4 mg Documented by: ROBBY Vital Signs Vital signs: Vital Signs - 8 hr 04/13/21 06:32 Temperature 98.2 F Pulse Rate 76 Respiratory Rate 18 Blood Pressure 175/89 H Pulse Oximetry 95 <Aleydadarío Mckeon, DO - Last Filed: 04/13/21 19:59> Orders Ordered: Discontinued Medications Sodium Chloride (Normal Saline 0.9%) 1,000 mls @ 500 mls/hr IV BOLUS ONE Stop: 04/13/21 08:31 Last Infusion: 04/13/21 09:08 Dose: 0 mls/hr Documented by: Admin: 04/13/21 06:43 Dose: 500 mls/hr Documented by: ROBBY Morphine Sulfate (Morphine 4 Mg/Ml Inj) 4 mg IV NOW ONE Stop: 04/13/21 06:33 Last Admin: 04/13/21 06:44 Dose: 4 mg Documented by: ROBBY Reevaluation(s) Reevaluation #1: Patient seen by myself. We reviewed patient's all labs his CT findings including his hepatic cyst, hiatal hernia and findings of gallstones. Patient states he is feeling a little bit better at this time after pain medication. On exam he is fairly comfortable he has some slight increase in pain in the right upper quadrant. Reviewed patient's past medical history. He takes testosterone as well as Flomax. Patient ambulated to the bathroom independently to give urine sample. Time: 07:45 Reevaluation #2: Patient feeling much better. Gallstones on ultrasound and CT. Patient states he would like to return home. He does not have any findings consistent with acute cholecystitis, cholangitis or other ascending infection. Patient and I discussed possible surgery and he would prefer to follow-up outpatient. Time: 09:27 Consultations Consultation #1: Dr. Alfonso, with general surgery. Reviewed patient's labs, imaging findings in acute symptoms today. She is comfortable patient following up as outpatient and happy see him. S the patient returns he has any worsening symptoms. Time: 09:27 Vital Signs Vital signs: Vital Signs - 8 hr 04/13/21 06:32 Temperature 98.2 F Pulse Rate 76 Respiratory Rate 18 Blood Pressure 175/89 H Pulse Oximetry 95 Medical Decision Making <Severiano Mckenzie DO - Last Filed: 04/13/21 17:55> Lab Data Result diagrams: 04/13/21 06:40 04/13/21 06:40 Labs: Lab Results 04/13/21 04/13/21 Range/Units 06:40 06:40 WBC 13.3 H (4.5-11.0) X10^3/uL RBC 5.87 (4.5-5.9) X10^6/uL Hgb 18.1 H (13.5-17.5) g/dL Hct 54.2 H (41-53) % MCV 92.4 (80-100) fL MCH 30.9 (26-34) PG MCHC 33.5 (30-36) % RDW 14.3 (11.6-14.8) % Plt Count 166 (150-400) X10^3/uL Neut % (Auto) 89.1 H (50-75) % Lymph % (Auto) 7.3 L (25-40) % [place] % (Auto) 3.0 (3-14) % Eos % (Auto) 0.1 L (2-4) % Baso % (Auto) 0.5 (0-2) % Neut # (Auto) 73534 H (1024-5518) /uL Lymph # (Auto) 1000 L (6659-8446) /uL [place] # (Auto) 400 (0-900) /uL Eos # (Auto) 0 (0-450) /uL Baso # (Auto) 100 (0-100) /uL Sodium 137 (137-145) mmol/L Potassium 3.6 (3.4-5.1) mmol/L Chloride 102 (98-107) mmol/L Carbon Dioxide 25 (22-32) mmol/L BUN 12 (9-20) mg/dL Creatinine 0.57 L (0.66-1.25) mg/dL Estimated GFR > 60.0 (>60) mL/min BUN/Creatinine Ratio 21.1 (6-22) Glucose 139 H (80-110) mg/dL Calcium 8.8 (8.4-10.2) mg/dL Total Bilirubin 0.8 (0.2-1.3) mg/dL AST 28 (17-59) IU/L ALT 25 (<50) IU/L Alkaline Phosphatase 82 (38-126) U/L Total Protein 7.6 (6.3-8.2) g/dL Albumin 4.3 (3.5-5.0) g/dL Globulin 3.3 (1.7-4.1) g/dL Albumin/Globulin Ratio 1.3 (1.0-2.8) Lipase 88 (23-300) U/L Urine Dip Bedside Urine Glucose Negative Bedside Urine Bilirubin - Negative Bedside Urine Ketone +/- 5 Urine Specific [place] 1.015 Bedside Urine Occult Blood - Negative Bedside Urine pH 7.5 Bedside Urine Protein - Negative Bedside Urine Urobilinogen - Negative Bedside Urine Nitrite - Negative Bedside Urine Leukocytes - Negative Esterase Point of care testing: Urine Dip Bedside Urine Glucose Negative Bedside Urine Bilirubin - Negative Bedside Urine Ketone +/- 5 Urine Specific [place] 1.015 Bedside Urine Occult Blood - Negative Bedside Urine pH 7.5 Bedside Urine Protein - Negative Bedside Urine Urobilinogen - Negative Bedside Urine Nitrite - Negative Bedside Urine Leukocytes - Negative Esterase MDM Narrative Medical decision making narrative: Patient has not had any vomiting or diarrhea and has generalized abdominal tenderness. Given his age in his presentation I do feel that labs and CT scan are warranted. Care turned over to day provider to follow up on labs and CT scan with ultimate disposition. <Aleyda Mckeon, DO - Last Filed: 04/13/21 19:59> Lab Data Lab results reviewed: Yes I reviewed the patient's lab results. Labs: Lab Results 04/13/21 04/13/21 Range/Units 06:40 06:40 WBC 13.3 H (4.5-11.0) X10^3/uL RBC 5.87 (4.5-5.9) X10^6/uL Hgb 18.1 H (13.5-17.5) g/dL Hct 54.2 H (41-53) % MCV 92.4 (80-100) fL MCH 30.9 (26-34) PG MCHC 33.5 (30-36) % RDW 14.3 (11.6-14.8) % Plt Count 166 (150-400) X10^3/uL Neut % (Auto) 89.1 H (50-75) % Lymph % (Auto) 7.3 L (25-40) % [place] % (Auto) 3.0 (3-14) % Eos % (Auto) 0.1 L (2-4) % Baso % (Auto) 0.5 (0-2) % Neut # (Auto) 14137 H (1439-3186) /uL Lymph # (Auto) 1000 L (0114-8286) /uL [place] # (Auto) 400 (0-900) /uL Eos # (Auto) 0 (0-450) /uL Baso # (Auto) 100 (0-100) /uL Sodium 137 (137-145) mmol/L Potassium 3.6 (3.4-5.1) mmol/L Chloride 102 (98-107) mmol/L Carbon Dioxide 25 (22-32) mmol/L BUN 12 (9-20) mg/dL Creatinine 0.57 L (0.66-1.25) mg/dL Estimated GFR > 60.0 (>60) mL/min BUN/Creatinine Ratio 21.1 (6-22) Glucose 139 H (80-110) mg/dL Calcium 8.8 (8.4-10.2) mg/dL Total Bilirubin 0.8 (0.2-1.3) mg/dL AST 28 (17-59) IU/L ALT 25 (<50) IU/L Alkaline Phosphatase 82 (38-126) U/L Total Protein 7.6 (6.3-8.2) g/dL Albumin 4.3 (3.5-5.0) g/dL Globulin 3.3 (1.7-4.1) g/dL Albumin/Globulin Ratio 1.3 (1.0-2.8) Lipase 88 (23-300) U/L Urine Dip Bedside Urine Glucose Negative Bedside Urine Bilirubin - Negative Bedside Urine Ketone +/- 5 Urine Specific [place] 1.015 Bedside Urine Occult Blood - Negative Bedside Urine pH 7.5 Bedside Urine Protein - Negative Bedside Urine Urobilinogen - Negative Bedside Urine Nitrite - Negative Bedside Urine Leukocytes - Negative Esterase Point of care testing: Urine Dip Bedside Urine Glucose Negative Bedside Urine Bilirubin - Negative Bedside Urine Ketone +/- 5 Urine Specific [place] 1.015 Bedside Urine Occult Blood - Negative Bedside Urine pH 7.5 Bedside Urine Protein - Negative Bedside Urine Urobilinogen - Negative Bedside Urine Nitrite - Negative Bedside Urine Leukocytes - Negative Esterase Imaging Data CT scan - abdomen/pelvis: Radiologist's Impression: Multiple stable well-circumscribed low-density lesions in the left hepatic lobe consistent with had axis. No new hepatic lesions present. Gallbladder is mildly distended and contains multiple stones. Small hiatal hernia is present. Small fat containing umbilical hernia is present. Enlargement of the prostate gland is noted. MDM Narrative Medical decision making narrative: 70-year-old male comes in with concern for food poisoning which is still a possibility. Patient was noted have gallstones on CT, ultrasound imaging was ordered as patient had very mild right upper quadrant tenderness. Patient does not have an acute abdominal exam. His white count was 13 with otherwise normal labs with no elevation in his lipase, or LFTs. Patient's ultrasound does not show any thickening, stranding or fluid collections or other findings consistent with cholecystitis or cholangitis. Patient is feeling much better. We did discuss that he may benefit from having surgery to remove his gallstones. He prefers to follow-up as an outpatient and referral was given after discussing with General surgery. Discharge Plan Departure Patient Disposition: Home Clinical Impression: Gallstones Nausea and vomiting Qualifiers: Vomiting Intractability: non-intractable Instructions: DI for Gallstones Activity Restrictions/Additional Instructions: Follow-up with general surgery for recheck and evaluation. A referral is included below, call tomorrow for an appointment. Your imaging today does show multiple small gallstones in the gallbladder which may be causing your symptoms. These were present on prior imaging from October of 2019. You may take Zofran 1 tablet every 6 hours as needed for nausea. Take pain medication as prescribed. This medication can make you sleepy do not drive, perform hazardous activities or make any major decisions while taking it. This medication will make you constipated please take a stool softener once to twice daily until stools are soft and regular. Please return for fevers, lightheadedness or passing out, persistent vomiting, new worsening abdominal, back or flank pain, new chest pain or shortness of breath, signs of dehydration, black or bloody stools or other new or concerning symptoms. Prescriptions: New ondansetron HCl [Zofran] 4 mg tablet 4 mg PO Q6H PRN (Reason: nausea and vomiting) Qty: 10 RF: 0 hydrocodone-acetaminophen 5-325 mg tablet 1 tab PO QID PRN (Reason: pain) Qty: 10 RF: 0 No Action tamsulosin 0.4 mg capsule 0.4 mg PO BID RF: 0 Referrals: Angeli Alfonso MD [Physician] -
[2021-04-13 06:42] LABS: Eosinophils Absolute Auto 0 /uL (0-450)
[2021-04-13] MEDS: SODIUM CHLORIDE 0.9% 1,000 ML 500 ML IV (06:43)
[2021-04-13] MEDS: MORPHINE 4 MG/ML INJ IV (06:44)
[2021-04-13 06:56] LABS: Add Manual Diff / Slide Review NO; Basophils Absolute Auto 100 /uL (0-100); Basophils Percent Auto 0.5 % (0-2); Eosinophils Percent Auto 0.1 % (2-4); Hematocrit 54.2 % (41-53); Hemoglobin 18.1 g/dL (13.5-17.5); Lymphocytes Absolute Auto 1000 /uL (1100-4500); Lymphocytes Percent Auto 7.3 % (25-40); Mean Corpuscular HGB Conc 33.5 % (30-36); Mean Corpuscular Hemoglobin 30.9 PG (26-34); Mean Corpuscular Volume 92.4 fL (80-100); Monocytes Absolute Auto 400 /uL (0-900); Neutrophils Absolute Auto 11800 /uL (1500-7000); Neutrophils Percent Auto 89.1 % (50-75); Platelet Count 166 X10^3/uL (150-400); Red Blood Cell Count 5.87 X10^6/uL (4.5-5.9); Red Cell Distribution Width 14.3 % (11.6-14.8); White Blood Cell Count 13.3 X10^3/uL (4.5-11.0)
[2021-04-13 06:59] LABS: Alanine Aminotransferase 25 IU/L (<50); Albumin 4.3 g/dL (3.5-5.0); Albumin Globulin Ratio 1.3 (1.0-2.8); Alkaline Phosphatase 82 U/L (38-126); Aspartate Aminotransferase 28 IU/L (17-59); BUN Creatinine Ratio 21.1 (6-22); Bilirubin Total 0.8 mg/dL (0.2-1.3); Blood Urea Nitrogen 12 mg/dL (9-20); Calcium 8.8 mg/dL (8.4-10.2); Carbon Dioxide 25 mmol/L (22-32); Chloride 102 mmol/L (98-107); Estimated Glomerular Filt Rate > 60.0 mL/min (>60); Globulin 3.3 g/dL (1.7-4.1); Glucose 139 mg/dL (80-110); HEMOLYSIS 40 (0-50); Lipase 88 U/L (23-300); Potassium 3.6 mmol/L (3.4-5.1); Sodium 137 mmol/L (137-145); Total Protein 7.6 g/dL (6.3-8.2)
--- NOTE | 2021-04-13 07:17 | DI.CT.S_ITS ---
PROCEDURE: CT ABDOMEN PELVIS W CON INDICATIONS: Generalized abdominal pain TECHNIQUE: After the administration of intravenous contrast, axial sections acquired from the lung bases to the pubic symphysis. Coronal and sagittal reformats were performed. For radiation dose reduction, the following was used: automated exposure control, adjustment of mA and/or kV according to patient size. COMPARISON: [facility], CT, CT ABDOMEN PELVIS W CON, 11/11/2019, 2:17. FINDINGS: Image quality: Excellent. Lung bases: Patchy bibasilar ground-glass and ill-defined opacities, left greater than right. No definite new focal consolidation. No pleural effusion Heart: No significant findings. ABDOMEN: Liver: Subcentimeter hepatic foci are statistically cysts or hemangiomas, although technically too small to characterize accurately and therefore nonspecific. Gallbladder: Sub 5 mm gallstones are present. Mild distention of the gallbladder however no other CT evidence for acute cholecystitis. Biliary ducts: Unremarkable. Pancreas: Unremarkable. Spleen: Nonspecific subcentimeter hypodense splenic focus, too small to characterize for example image 14/2. Adrenal Glands: Unremarkable. Kidneys and Ureters: Bilateral renal cortical scarring and atelectasis. No hydronephrosis. Stomach and Bowel: Stomach, small bowel loops, and colon are unremarkable. There is mild to moderate stool. No transition point identified. Normal appendix. Colonic diverticulosis is seen without evidence of acute complication. There is possible mild long segment mural thickening involving the proximal sigmoid colon on image 69/2 although this could be artifactual due to decompressed state. Peritoneum: No abnormal intraperitoneal fluid. No free air. Ventral Wall: Small fat containing periumbilical hernia on image 64/2. Abdominal Nodes: No retroperitoneal or mesenteric adenopathy by size criteria. Vessels: Aorta and inferior vena cava are normal in size. PELVIS: Pelvic Organs: Enlarged prostate, with possible postsurgical changes related to TURP although recommend correlation to operative history, if any. Bladder: Unremarkable. Pelvic Nodes: No enlarged lymph nodes. Miscellaneous: No hernias are seen. Bones: Spondylitic changes and facet arthropathy. No compression fracture. Scoliosis noted. IMPRESSION: Mildly distended gallbladder with sub 5 mm gallstones. As clinically warranted, further evaluation to assess for acute cholecystitis could be performed with abdominal ultrasound.The appearance is similar to prior study from 11/11/19. Questionable long segment mural thickening involving the proximal sigmoid colon, which could be related to an early/low-grade colitis versus artifactual due to decompressed state. Please correlate clinically. Small hiatal hernia Enlarged prostate. Findings (including all critical results, if any) and recommendations were personally telephoned and discussed with Dr. Mckeon on 04-13-21 08:49 Dictated by: Reggie Albrecht M.D. on 04/13/2021 at 8:36 Approved by: Reggie Albrecht M.D. on 04/13/2021 at 8:49
[2021-04-13 07:18] VITALS: PULSE 82; O2SAT 95
[2021-04-13 07:30] VITALS: PULSE 83; O2SAT 94
--- NOTE | 2021-04-13 07:40 | DI.US.S_ITS ---
PROCEDURE: US ABDOMEN LIMITED INDICATIONS: RUQ PAIN TECHNIQUE: Real-time focused scanning was performed of the abdomen, with image documentation. COMPARISON: [facility], CT, CT ABDOMEN PELVIS W CON, 04/13/2021, 7:12. [facility], CT, CT ABDOMEN PELVIS W CON, 11/11/2019, 2:17. FINDINGS: Liver measures 15.5 cm in length. There is diffuse increased echogenicity. No focal hepatic lesion. Gallbladder demonstrates multiple approximately 4 mm non mobile appearing calculi within the region of the neck. No gallbladder wall thickening. No pericholecystic fluid or sonographic Wright sign. Gallbladder appears mildly distended. No bile duct dilatation is seen. The pancreas is sonographically unremarkable. IMPRESSION: Sub 5 mm gallbladder calculi as above. Mildly distended appearance of the gallbladder. Otherwise, no other sonographic criteria for acute cholecystitis. Please correlate clinically and with LFTs Coarse echogenic liver suggesting diffuse hepatocellular disease/fatty infiltration. Please correlate with LFTs. Dictated by: Reggie Albrecht M.D. on 04/13/2021 at 8:54 Approved by: Reggie Albrecht M.D. on 04/13/2021 at 8:56
[2021-04-13 09:50] VITALS: PULSE 95; O2SAT 92
[2021-04-13 09:51] VITALS: BP 137/81; PULSE 94; O2SAT 93
== END 2021-04-13 09:57 | disposition home or self-care (01) ==
PROVIDERS: Emergency Medicine; Emergency Provider Emergency Medicine
DX: K80.20 Calculus of gallbladder without cholecystitis without obstruction (principal); R11.2 Nausea with vomiting, unspecified
CPT/HCPCS: 36415; 74177; 76705; 80053; 81003; 83690; 85025; 96361; 96374; 99284; J2270; Q9967

== ENCOUNTER → 2021-05-12 09:55 | Outpatient (CLI) | payer MEDICARE, SELFPAY ==
[2021-05-12 11:12] LABS: COVID19 -Nasal RAPID Negative (Negative)
== END ==
PROVIDERS: PCP Neuromusculoskeletal Medicine & OMM; Visit Provider Specialist
DX: Z20.822 Contact with and (suspected) exposure to COVID-19 (principal)
CPT/HCPCS: 87635; C9803

== ENCOUNTER 2021-05-13 08:06 | Day surgery (SDC) | payer MEDICARE, SELFPAY ==
[2021-05-07 14:01] VITALS: BMI 34.2
[2021-05-13] VITALS (9 sets, daily range): BP systolic 128–152; BP diastolic 80–96; PULSE 77–96; RESP 12–20; TEMP 36.3–37.7; O2SAT 9–96; BMI 34.2
--- NOTE | 2021-05-13 | PATH_ITS ---
[facility] Accession Number: [id number] . 01 Material submitted: . gallbladder - GALLBLADDER . 01 Clinical history: . LAP RACHEAL . 02 Diagnosis: Gallbladder, Cholecystectomy: Gallbladder with a predominantly eroded mucosal surface, cholesterolosis, and a thickened wall, nonspecific. Adherent hepatic tissue with patchy increased bile ductules, nonspecific. Cystic duct margin not apparent at gross examination (specimen submitted fragmented). MRV 05/18/2021 1048 Local . 02 Electronically signed: . Magdalena Sanz MD, Pathologist NPI- [id number] . 01 Gross description: . The specimen is received in formalin and labeled with gallbladder. It consists of three ragged, unoriented gallbladder fragments ranging from 4.6-7.9 cm in greatest dimension. The identifiable serosa is pink-ramires, smooth and glistening, and diffusely congested. The lumen reaches a diameter of 4.8 cm. A cystic duct margin is not grossly apparent. The mucosa is red-brown, diffusely hemorrhagic, and heavily trabeculated. The wall ranges from 0.3-1.1 cm in thickness and has white-ramires, fibrous cut surfaces. The mucosa has focal areas of yellow flecks. [employer]idential [employer] sections are submitted. . Summary of Sections: A1 = Gallbladder, car sales representative, 3 pieces. A2 = Gallbladder, car sales representative, 2 pieces. ([id number]) /MRV 05/14/2021 1113 Local . 02 Pathologist provided ICD-10: K80.20, R10.9 . 02 CPT . 299629 Performed at: [facility], [facility] [address] [place] [address] [facility] [place], [place], [place] [id number] MD Joseph Blunt MD Phone: [phone] Performed at: 02 [facility] [place] [id number] [place] [id number] MD Meli Vasquez MD Phone: [phone]
[2021-05-13] MEDS: LACTATED RINGERS 1,000 ML 42 ML IV ×2 (08:37→11:54)
--- NOTE | 2021-05-13 09:22 | PM.PREOP ---
Pre-operative Note COVID-19 COVID-19 status: Negative Result date/Date tested (Pos, Neg/Pending): 05/12/21 Interval Note History & Physical reviewed/Exam performed by Physician: Yes Changes to H&P: No
[2021-05-13] MEDS: CEFAZOLIN 1 GM VIAL 2 GM IV (09:54)
--- NOTE | 2021-05-13 10:09 | SUR.OPER ---
Supine on padded OR bed, head on pillow, safety belt at thigh, left arm padded and tucked at side. Right arm secured on padded arm board <90 degrees abduction. Legs uncrossed. Padded footboard in place. Tape over blanket to secure lower legs.
[2021-05-13] MEDS: BUPIVACAINE 0.5% (PF) VIAL 30 ML INJ (10:16)
--- NOTE | 2021-05-13 12:59 | P.OP_ITS ---
Operative Date/Time/Diagnoses Date of procedure: 05/13/21 Time of procedure: 12:59 Pre-op diagnosis: Cholelithiasis cholecystitis Post-op diagnosis: same (Acute on chronic cholecystitis with cholelithiasis.) Procedure & Clinicians Procedure: Laparoscopic cholecystectomy Same procedure as scheduled: Yes Indications: Symptomatic gallbladder disease Surgeon: Juno Rico Click Yes if Unassisted: Yes Anesthesia Type: General Operative Notes Findings: Very thickened gallbladder with chronic and acute adhesions of omentum to its surface. Very difficult operation. Closure Type: primary Specimen(s): other (Gallbladder and contents) Estimated Blood Loss (mL): 250 Blood products transfused: none Procedure in detail: The patient was placed supine on the operating room table and underwent general endotracheal anesthesia. The patient was prepped and becky ped in the usual fashion. Local anesthetic was infiltrated above the umbilicus and linear incision made and carried down through fascia into the peritoneal cavity. Stay sutures of 0 Vicryl were placed in the fascia. A 12 mm port was placed. The abdomen was insufflated. The patient was repositioned. Local anesthetic was infiltrated in 3 areas under the right costal margin and 3 small incisions made followed by placing 3 5 mm ports under direct laparoscopic camera vision internally. The gallbladder was encased in omentum. This was taken down with sharp dissection, blunt dissection and cautery. A needle was inserted in the gallbladder and I drains 60 cc of greenish fluid. The gallbladder was Grasped and elevated. Dissection was begun near its end. It was very difficult to clearly see the end of the gallbladder due to the inflammation and omentum (which was large due to his obesity) creeping into the visual field. Using pre it would principally blunt dissection identified what appeared to be the cystic artery and the region of the cystic duct. The tissues were very difficult to dissect into. I placed clips across multiple structures in case they were vascular. The structures that I felt were too serial had 3 clips applied and they were divided leaving 2 in the patient. There was inflammation around where the cystic duct appeared to be and I decided to remove the gallbladder from above. I 1st began to do this with cautery but it became apparent very early on that the cautery was not very effective on his tissues. Chronic scalpel was obtained and using this principally to dissect and divide I dissected the gallbladder from the bed of the liver. This was very difficult and very tedious. There was oozing from the gallbladder bed as the patient's gallbladder was partially intrahepatic. I could not easily identify a plane between the gallbladder wall and the gallbladder. Continuous liver surface oozing from the gallbladder bed ensued. This hampered visualization I had to frequently pause to suction the tissues in order to safely divide them.. The dissection was brought down until only the gallbladder/cystic duct appeared to be tethering the gallbladder to the patient. I did not attempt due to the amount of inflammation and concern over injury to dissect out the cystic duct. The tissues around it were very dense. Therefore I chose to place an 0 0 PDS loop on the area where the gallbladder seemed to attached to the cystic duct. This was cinched down and the excess suture material removed. Using the Harmonic scalpel the distal gallbladder was of I did. It was impressive how thick the tissues were. Ultimately the gallbladder was detached and removed through the umbilical port in a bag. I re-examined the gallbladder bed of the liver and there was no ongoing bleeding. The right upper quadrant was copiously irrigated and suctioned free of fluid and blood. There was some small stones that had escaped the gallbladder and these were picked up and removed. Every stone seen was removed. A search was made for additional stones and none was found. Satisfied that there was no bleeding and re-examining the stump could see no bilious leakage I removed the instruments and ports.. the port sites were all irrigated. The stay sutures at the umbilicus were elevated. A 2 0 PDS suture was placed between them. The Vicryl and PDS sutures were then tied. The skin in all areas was closed with interrupted 4 0 Vicryl subcuticular stitches. Steri-Strips and Mastisol were applied. Band-Aids were placed and the patient was awakened, extubated and taken to the recovery area in good condition. This was a very difficult and tedious operation taking far longer than my usual amount of time to perform a laparoscopic cholecystectomy. This was principally due to the patient's size and the amount of inflammation of the gallbladder and his anatomy with the gallbladder being intrahepatic to a significant degree. Complications: none Post-operative Condition: stable Disposition: PACU Plan for aftercare: Follow-up in the office
[2021-05-13] MEDS: fentaNYL 100 MCG/2 ML INJ IV ×2 (13:13→13:18)
--- NOTE | 2021-05-13 13:22 | SUR.PHASEI ---
Pt received to PACU with oral airway in place. Placed on 10L simple mask for O2 sats 88%. No further airway support required. Report received from Dr Ladd and YONATAN Virk. Oral airway removed at 1304. Report given to Hemant Dior RN and care assumed by her.
--- NOTE | 2021-05-13 14:44 | SUR.PHASEII ---
Updated Dr Rico on patient with pain post op. Still on oxygen. See new order for acetaminophen. No Ibuprofen at home.
[2021-05-13] MEDS: ACETAMINOPHEN 325 MG TABLET 975 MG PO (14:48)
[2021-05-13] MEDS: OXYCODONE IR 5 MG TABLET PO (15:12)
--- NOTE | 2021-05-13 16:02 | SUR.PHASEII ---
Pt discharged to home with partner Jose C. Reviewed DC instructions at bedside with pt and Jose C. Steady up to BR. Up in WC after BR. Denied SOB and pain unchanged at 02/07. Tolerating liquids, no nausea.
== END 2021-05-13 15:44 | disposition home or self-care (01) ==
PROVIDERS: PCP Neuromusculoskeletal Medicine & OMM; Referring Provider Specialist; Visit Provider Specialist
PROC: 0FT44ZZ Resection of Gallbladder, Percutaneous Endoscopic Approach (ICD-10-PCS; CPT 47562; principal; 2021-05-13 09:15)
DX: K80.12 Calculus of gallbladder with acute and chronic cholecystitis without obstruction (principal); K82.8 Other specified diseases of gallbladder
CPT/HCPCS: 47562; J0690; J1100; J2250; J2405; J2704; J3010

== ENCOUNTER → 2022-06-21 12:40 | Outpatient (ROUT) | payer MEDICARE, SELFPAY ==
[2022-06-21 12:57] LABS: Alanine Aminotransferase 24 IU/L (<50); Albumin 3.7 g/dL (3.5-5.0); Albumin Globulin Ratio 1.2 (1.0-2.8); Alkaline Phosphatase 95 U/L (38-126); Aspartate Aminotransferase 17 IU/L (17-59); BUN Creatinine Ratio 16.9 (6-22); Bilirubin Total 0.5 mg/dL (0.2-1.3); Blood Urea Nitrogen 11 mg/dL (9-20); Calcium 9.4 mg/dL (8.4-10.2); Carbon Dioxide 28 mmol/L (22-32); Chloride 106 mmol/L (98-107); Estimated Glomerular Filt Rate > 60 mL/min (>60); Glucose 118 mg/dL (80-110); HEMOLYSIS < 15 (0-50); Potassium 4.1 mmol/L (3.4-5.1); Sodium 140 mmol/L (137-145); Total Protein 6.7 g/dL (6.3-8.2)
[2022-06-21 13:11] LABS: Vancomycin Trough 10.3 ug/mL (10-20)
[2022-06-21 13:25] LABS: Hematocrit 43.2 % (41-53); Hemoglobin 14.8 g/dL (13.5-17.5); Mean Corpuscular HGB Conc 34.3 % (30-36); Mean Corpuscular Hemoglobin 32.3 PG (26-34); Platelet Count 232 X10^3/uL (150-400); Red Cell Distribution Width 14.6 % (11.6-14.8); White Blood Cell Count 4.9 X10^3/uL (4.5-11.0)
[2022-06-21 13:26] LABS: Add Manual Diff / Slide Review YES
[2022-06-21 13:42] LABS: Neutrophils Absolute Manual 2352 /uL (3000-5900); RBC Morphology Normal Morphology; Total Cells Counted 100
== END ==
PROVIDERS: PCP Neuromusculoskeletal Medicine & OMM; Visit Provider Internal Medicine Infectious Disease
DX: T84.51XA Infection and inflammatory reaction due to internal right hip prosthesis, initial encounter (principal); B95.62 Methicillin resistant Staphylococcus aureus infection as the cause of diseases classified elsewhere
CPT/HCPCS: 80053; 80202; 85007; 85025

== ENCOUNTER → 2023-08-19 14:18 | Outpatient (CLI) | payer MEDICARE, SELFPAY | PROVIDERS: PCP Family Medicine; Visit Provider Physician Assistant | DX: R31.9 Hematuria, unspecified (principal) | CPT/HCPCS: 87086 ==